=== PATIENT | male | born 2005 | race Caucasian/White ===

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

== ENCOUNTER 2025-02-24 15:34 | Outpatient (CLI) | payer SELFPAY ==
--- OUTSIDE RECORDS SUMMARY | 2025-02-24 18:57 | XMS_ITS | Clinical Summary ---
Author Organization [facility] Address [address] [place] [address] Care Team Providers Care Chorus Dancer Name Role Phone Provider, None Primary Care [...] - Bexsero SCDM 2-dose series) 04/02/2023 09/30/2022 Influenza Immunization (#1) 2024 02/08/2024 SARS-COV-2 Immunization (3 - season) 2024 09/30/2020, 09/09/2020 Respiratory Syncytial Virus (RSV) Immunization (Adult) (1 - 1-dose 75+ series) 2080 Hepatitis B Immunization Completed 006, 2005, 2005 Pneumococcal Immunization Combined Completed 01/29/2007, 2005, 2005, Additional history exists Varicella Immunization Completed 10/19/2010, 2006 TdaP Immunization Completed 07/12/2016 Meningococcal Immunization (ACWY) Completed 09/30/2022, 07/12/2016 Rotavirus Immunization Aged Out No lo nger eligible based on patient's age to complete this topic Insurance Care Teams Chorus Dancer Relationship Specialty Start Date End Date Provider, None [place] PCP - General 06/15/24
--- OUTSIDE RECORDS SUMMARY | 2025-02-24 18:57 | XMS_ITS | Clinical Summary ---
Author Organization [facility] Address [address] [place] [address] Care Team Providers Care Cyber Reverse Engineer Name Role Phone Mari Betancur MD Primary Care Provider [phone] Source Comments [facility],non-owned Affiliates and Associated Physician Practices is amultiple site organization consisting of ambulatory clinics and hospital sitesin [place], [place], [place] and [place]. This disclosure is being madepursuant to the Care Everywhere program and may not contain all information available regarding this patient. 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 Gender Identity Not on file Sexual Orientation [...] 11/18/2021 9:0 0 AM CDT Growth Chart: [facility] (Boys, 2-2 0 Years) Plan of Treatment Health Maintenance Due Date Last Done Comments HIV SCREENING 2020 HPV VACCINE (1 - Male 3-dose series) 2020 MENINGOCOCCAL (Group B) VACC INE SHARED DECISION-MAKING (1 of 2 - Standard) 2021 HEPATITIS C SCREENING 05/12/2023 DEPRESSION SCREENING 03/20/2024 DTAP/TDAP/TD VACCINES (1 - Tdap) 2024 HEPATITIS B VACCINE (1 of 3 - 19+ 3-dose series) 2024 COVID-19 VACCINE (1 - 2024-2 6 season) 2024 INFLUENZA VACCINE (#1) 2024 ZOSTER VACCINE [...] topic Insurance MEDICAID - [place] Care Teams Cyber Reverse Engineer Relationship Specialty Start Date End Date Mari Betancur MD [address] [place] [phone] PCP - General Pediatrics 11/17/11
== END 2025-02-24 15:35 | disposition home or self-care (01) ==
LOC: CHSCARD 15:37
PROVIDERS: PCP Pediatrics
DX: F90.2 Attention-deficit hyperactivity disorder, combined type (principal); Z79.899 Other long term (current) drug therapy; R00.1 Bradycardia, unspecified
CPT/HCPCS: 93005